=== PATIENT | female | born 1960 | race American Indian/Alaskan Native ===

== ENCOUNTER 2016-09-23 13:16 | Outpatient (CLI) | payer BC ==
--- NOTE | 2016-09-24 13:39 | Mammography Report ---
Bilateral mammogram: Compared to 10/05/14 CAD study utilized. Findings: Predominance of adipose tissue bilaterally. There is new 2 mm focal circumscribed density upper outer left breast. Focal architectural distortion upper outer posterior right breast. Benign axillary nodes. No microcalcification. Impression: Small circumscribed density left breast and focal architectural distortion right breast. Recommend spot mag and if necessary sonographic examination. BI-RADS CATEGORY: 0 = Needs additional imaging evaluation ACR BI-RADS MAMMOGRAPHIC CODES: 0 = Needs additional imaging evaluation; 1 = Negative; 2 = Benign; 3 = Probably benign; 4 = Suspicious; 5 = Malignant; 6 = Known biopsy-proven malignancy COMMENT: 1. Dense breast tissue, i.e., adenosis, fibrocystic changes, etc., may obscure an underlying neoplasm. 2. Approximately 10% of cancers are not detected with mammography. 3. A negative mammography report should not delay biopsy if a clinically suspicious mass is present. COMMENT: Patient follow-up letters are generated in [employer].
== END 2016-09-23 13:17 | disposition home or self-care (01) ==
LOC: MAMMO 13:16
PROVIDERS: ATTEND Obstetrics & Gynecology
DX: Z12.31 Encounter for screening mammogram for malignant neoplasm of breast (principal)
CPT/HCPCS: 77067; G0202

== ENCOUNTER 2016-10-11 10:40 | Outpatient (CLI) | payer BC ==
--- NOTE | 2016-10-11 11:51 | Mammography Report ---
Spot compression magnification of focal asymmetry upper outer right breast and focal asymmetry upper outer left breast followed by sonogram of outer left breast: Findings: There is complete effacement noted of the density right breast. No masses seen. No microcalcification. There is persistence of focal 2 mm dense asymmetry outer left breast with effacement of similar density upper left breast. Sonographic examination of outer left breast reveals small hyperechoic mass measuring 2 mm in diameter 2:00 o'clock position 7 cm from nipple and appears to correspond to the density seen on mammogram. Impression: Probably benign. Six-month followup with mammogram and if necessary sonogram recommended. BI-RADS CATEGORY: 3 = Probably benign ACR BI-RADS MAMMOGRAPHIC CODES: 0 = Needs additional imaging evaluation; 1 = Negative; 2 = Benign; 3 = Probably benign; 4 = Suspicious; 5 = Malignant; 6 = Known biopsy-proven malignancy COMMENT: 1. Dense breast tissue, i.e., adenosis, fibrocystic changes, etc., may obscure an underlying neoplasm. 2. Approximately 10% of cancers are not detected with mammography. 3. A negative mammography report should not delay biopsy if a clinically suspicious mass is present. COMMENT: Patient follow-up letters are generated in [employer].
== END 2016-10-11 10:41 | disposition home or self-care (01) ==
LOC: MAMMO 10:40
PROVIDERS: ATTEND Obstetrics & Gynecology
DX: N64.89 Other specified disorders of breast (principal)
CPT/HCPCS: 76642; G0204; 77066

== ENCOUNTER 2017-04-09 12:45 | Outpatient (CLI) | payer BC ==
--- NOTE | 2017-04-09 13:46 | Mammography Report ---
Bilateral digital diagnostic mammogram with CAD. History: Six-month followup study. Findings: The 3 mm nodular asymmetry in the lateral left breast is unchanged since the previous study. The margins are circumscribed. There is no architectural torsion or suspicious calcifications. Otherwise, the breasts are fatty replaced. Impression: Stable benign-appearing left nodular asymmetry demonstrating benign features. BI-RADS code: 2. Recommendation: Annual screening.
== END 2017-04-09 12:46 | disposition home or self-care (01) ==
LOC: MAMMO 12:45
PROVIDERS: ATTEND Obstetrics & Gynecology
DX: N64.89 Other specified disorders of breast (principal)
CPT/HCPCS: 77066; G0204